=== PATIENT | female | born 1995 | race Caucasian/White ===

== ENCOUNTER 2016-08-13 19:54 | Emergency (ER) | payer BC ==
[2016-08-13 20:00] VITALS: PULSE 82; RESP 16; TEMP 98.1; O2SAT 98
--- NOTE | 2016-08-13 22:00 | EDPHY ---
H & P Stated Complaint: left foot swelling at 730am after tripping HPI/ROS: HPI CHIEF COMPLAINT: Left foot pain HISTORY OF PRESENT ILLNESS: This patient very pleasant 20-year-old female significant past medical history for anxiety, denies any other significant medical history, presents to the emergency room with left foot pain. She states she rolled her foot in a drain ditch during graduation today. Since then she has had swelling and pain to the dorsum of her left foot. She is neurovascular intact. No compartment syndrome. Pain is 6/10. This happened over 2 hours ago. She is able to ambulate on it. Past Medical History: Anxiety Past Surgical History: Lequire tooth removal Social History: [employer] student just graduated today, denies daily drugs alcohol tobacco products Family History: noncontributory ROS REVIEW OF SYSTEMS: A comprehensive 10 point review of systems is otherwise negative aside from elements mentioned in the history of present illness. Exam Constitutional triage nursing summary reviewed, vital signs reviewed, awake/ alert. Eyes normal conjunctivae and sclera, EOMI, PERRLA. HENT normal inspection, atraumatic, moist mucus membranes, no epistaxis, neck supple/ no meningismus, no raccoon eyes. Respiratory clear to auscultation bilaterally, normal breath sounds, no respiratory distress, no wheezing. Cardiovascular rate normal, regular rhythm, no murmur, no edema, distal pulses normal. Gastrointestinal soft, non-tender, no rebound, no guarding, normal bowel sounds, no distension, no pulsatile mass. Genitourinary no CVA tenderness. Musculoskeletal left foot: Neurovascular intact good DP, good cap refill, good sensation. Swelling and ecchymosis and tenderness of the dorsum of the foot. No signs of compartment syndrome. no midline vertebral tenderness, full range of motion, no calf swelling, no tenderness of extremities, no meningismus, good pulses, neurovascularly intact. Skin pink, warm, & dry, no rash, skin atraumatic. Neurologic awake, alert and oriented x 3, AAOx3, moves all 4 extremities equally, motor intact, sensory intact, CN II-XII intact, normal cerebellar, normal vision, normal speech. Psychiatric normal mood/affect. Heme/Lymph/Immune no lymphadenopathy. Differential Diagnosis: Includes but is not limited to in a particular order foot contusion, foot sprain, fracture. Medical Decision Making: Plan for this patient x-ray left foot. Re-evaluation: 2206: x-ray reviewed shows no fracture. Exam neurovascular intact. Will place on walking boot crutches ibuprofen for pain. Ice pack. [place] for severe pain. Source: Patient - Personal History LMP (Females 10-55): Now Current Tetanus/Diphtheria Vaccine: Unsure Current Tetanus Diphtheria and Acellular Pertussis (TDAP): Unsure Tetanus Vaccine Date: <10 years - Medical/Surgical History Hx Asthma: Yes Hx Chronic Respiratory Disease: No Hx Diabetes: No Hx Cardiac Disease: No Hx Renal Disease: No Hx Cirrhosis: No Hx Alcoholism: No Hx HIV/AIDS: No Hx Splenectomy or Spleen Trauma: No Other PMH: OTHRO SURGERY, broken arm, foot and elbow, asthma, anxiety - Social History Smoking Status: Never smoked Constitutional: Initial Vital Signs Temperature (C) 36.7 C 08/13/16 19:56 Heart Rate 82 08/13/16 19:56 Respiratory Rate 16 08/13/16 19:56 Blood Pressure 134/86 H 08/13/16 19:56 O2 Sat (%) 98 08/13/16 19:56 O2 Delivery Mode Room Air Allergies/Adverse Reactions: No Known Allergies Allergy (Unverified 08/04/14 09:31) Home Medications: Medication Instructions Recorded Bcp 08/04/14 Hydrocodone/APAP 5/325 [[place] 1 - 2 tab PO Q4H PRN #10 tab 08/13/16 5/325] Ibuprofen [Motrin (*)] 800 mg PO Q6-8PRN #7 tab 08/13/16 Zoloft 50mg (*) 08/13/16 Medical Decision Making - Diagnostics Imaging Results: Imaging Impressions Foot X-Ray 08/13/16 20:02 Impression: Nothing acute identified. Departure - Departure Disposition: Home, Routine, Self-Care Clinical Impression: Sprain of foot, left Qualifiers: Encounter type: initial encounter Qualified Code(s): S93.602A - Unspecified sprain of left foot, initial encounter Condition: Good Instructions: Foot Sprain (ED) Additional Instructions: 1. Please ice her foot. 2. please elevate her leg. 3.Return emergency room if you have any worsening symptoms questions or concerns including pain. 4. If you continue have pain over the next 10 days of follow-up with a foot doctor or pilot supervisor. Referrals: RADHA VIDAL [Other] - As per Instructions Prescriptions: Hydrocodone/APAP 5/325 [[place] 5/325] 1 - 2 tab PO Q4H PRN #10 tab PRN Reason: Pain, Moderate Ibuprofen [Motrin (*)] 800 mg PO Q6-8PRN #7 tab
[2016-08-13 22:36] VITALS: BP 128/88
== END 2016-08-13 22:35 | disposition home or self-care (01) ==
DX: S93.602A Unspecified sprain of left foot, initial encounter (principal); J45.909 Unspecified asthma, uncomplicated; W18.40XA Slipping, tripping and stumbling without falling, unspecified, initial encounter